=== PATIENT | male | born 1970 | race Two or more races ===

== ENCOUNTER 2024-05-18 10:45 | Inpatient (IN) | payer OTHER ==
[~2024-05-18] VITALS: Ht 167.6 cm; Wt 91.2 kg
[2024-05-18] MEDS ORDERED: RESTORIL30 M1 PO (13:12)
[2024-05-18] MEDS ORDERED: IRBESARTAN150 MG PO (13:12)
[2024-05-18] MEDS ORDERED: ROSUVASTATIN CA20 MG PO (13:12)
[2024-05-18] MEDS ORDERED: HYDROCHLOROTHIA25 MG PO (13:13)
[2024-05-18] MEDS ORDERED: HORIZANT300 MG PO (13:13)
[2024-05-18] MEDS ORDERED: CLONAZEPAM0.5 MG PO (13:13)
[2024-05-18] MEDS ORDERED: TAMS0.4C PO (13:13)
[2024-05-18] MEDS ORDERED: MONTELUKAST SOD10 MG PO (13:13)
[2024-05-18] MEDS ORDERED: PAROXETINE HCL30 MG PO (13:14)
[2024-05-18] MEDS ORDERED: BETAMETHASONE A (13:14)
[2024-05-18] MEDS ORDERED: PROAIR RESPICL90 MCG IH (13:15)
[2024-05-18] MEDS ORDERED: NORVASC10 MG PO (13:15)
[2024-05-18] MEDS ORDERED: BUPROPION HCL150 MG PO (13:16)
[2024-05-23] MEDS ORDERED: BUPIVACAINE HCL 30 ML VIAL IV ONE (11:30)
[2024-05-23] MEDS ORDERED: LIDOCAINE HCL 1%/EPINEPHRINE 20ML VIAL IJ ONE (11:30)
[2024-05-23] MEDS ORDERED: DEXTROSE 50 % IN WATER 0.5 G/ML DISP.SYRIN IV PRN (12:30)
[2024-05-23] MEDS ORDERED: RINGERS SOLUTION,LACTATED 1,000 ML IV SCH (12:30)
[2024-05-23] MEDS ORDERED: MORPHINE SULFATE 4 MG/ML CARTRIDGE IV PRN (12:30)
[2024-05-23] MEDS ORDERED: OxyCODONE HCL 5 MG TABLET (ROXICODONE) PO PRN (12:30)
[2024-05-23] MEDS ORDERED: ONDANSETRON HCL 2 MG/ML VIAL IV PRN (12:30)
[2024-05-23] MEDS ORDERED: ACETAMINOPHEN 500 MG GEL..CAP PO SCH (14:00)
[2024-05-23 15:08] LABS: HEMATOCRIT 42.2 % (39.0-48.0); HEMOGLOBIN 14.4 g/dL (13-16.00); MEAN CELL VOLUME 88.2 fL (80.0-100.00); MEAN CORPUSCULAR HGB CONC 34.1 g/dl (32.0-36.0); PLATELET COUNT 267 K/uL (150-450); RED BLOOD COUNT 4.79 M/uL (4.00-6.00); RED CELL DISTRIBUTION WIDTH 13.4 % (11.5-14.5)
[2024-05-23 15:25] LABS: ALBUMIN 4.2 gm/dL (3.4-5.0); CALCIUM 9.1 mg/dL (8.5-10.1); CREATININE SERUM 1.09 mg/dL (0.70-1.30); GFR 70.5; MAGNESIUM 1.9 mg/dL (1.8-2.4); PHOSPHOROUS 3.4 mg/dL (2.5-4.9); POTASSIUM 4.14 mEq/L (3.5-5.1)
[2024-05-23] MEDS ORDERED: POLYETHYLENE GLYCOL 3350 17 GM BLIST.PACK PO SCH (17:00)
[2024-05-23] MEDS ORDERED: GABAPENTIN 300 MG CAPSULE PO SCH (17:00)
[2024-05-23] MEDS ORDERED: HYOSCYAMINE SULFATE 0.125 MG TAB.SUBL SL SCH (17:00)
[2024-05-23] MEDS ORDERED: FAMOTIDINE/PF 20 MG/2 ML VIAL IV PUSH SCH (21:00)
[2024-05-24 07:00] LABS: HEMOGLOBIN 14.3 g/dL (13-16.00); MEAN CELL VOLUME 85.1 fL (80.0-100.00); MEAN CORPUSCULAR HEMOGLOBIN 29.7 pg (27.00-32.0); MEAN CORPUSCULAR HGB CONC 34.9 g/dl (32.0-36.0); PLATELET COUNT 262 K/uL (150-450); RED BLOOD COUNT 4.82 M/uL (4.00-6.00); RED CELL DISTRIBUTION WIDTH 13.4 % (11.5-14.5)
[2024-05-24 07:25] LABS: ALBUMIN 3.9 gm/dL (3.4-5.0); CREATININE SERUM 0.85 mg/dL (0.70-1.30); GFR 93.93; MAGNESIUM 1.9 mg/dL (1.8-2.4); PHOSPHOROUS 2.7 mg/dL (2.5-4.9); POTASSIUM 3.66 mEq/L (3.5-5.1)
[2024-05-24] MEDS ORDERED: ENOXAPARIN SODIUM 40 MG/0.4 ML SYRINGE SUBCUTANEO SCH (17:00)
[2024-05-24 22:00] LABS: URINE APPEARANCE Clear; URINE BILIRRUBIN Negative (NEGATIVE); URINE BLOOD Small; URINE COLOR Yellow; URINE GLUCOSE Negative (NEGATIVE); URINE KETONE Negative (NEGATIVE); URINE LEUKOCYTE Negative; URINE NITRATE Negative; URINE PROTEIN Negative (NEGATIVE); URINE UROBILINOGEN 0.2 E.U./dl
[2024-05-24 22:03] LABS: URINE BACTERIA 6.2 uL (0.0-1933); URINE RBC 55.8 uL (0.0-20.8)
[2024-05-24 22:05] LABS: URINE EPITHELIAL CELLS 1.3 uL (0.0-38.8)
[2024-05-25 06:58] LABS: HEMATOCRIT 39.5 % (39.0-48.0); HEMOGLOBIN 13.7 g/dL (13-16.00); MEAN CELL VOLUME 85.6 fL (80.0-100.00); MEAN CORPUSCULAR HEMOGLOBIN 29.7 pg (27.00-32.0); MEAN CORPUSCULAR HGB CONC 34.8 g/dl (32.0-36.0); PLATELET COUNT 214 K/uL (150-450); RED BLOOD COUNT 4.62 M/uL (4.00-6.00); RED CELL DISTRIBUTION WIDTH 13.5 % (11.5-14.5)
[2024-05-25] MEDS ORDERED: MONTELUKAST SODIUM 10 MG TABLET PO SCH (09:00)
[2024-05-25] MEDS ORDERED: ENOXAPARIN SODIUM 40 MG/0.4 ML SYRINGE SUBCUTANEO SCH (09:00)
[2024-05-25] MEDS ORDERED: BUPROPION HCL 150 MG TABLET.SA PO SCH (09:00)
[2024-05-25] MEDS ORDERED: PAROXETINE HCL 20 MG TABLET PO SCH (09:00)
[2024-05-25] MEDS ORDERED: HYDROCHLOROTHIAZIDE 25 MG TABLET PO SCH (09:00)
[2024-05-25] MEDS ORDERED: IRBESARTAN 150 MG TABLET PO SCH (09:00)
[2024-05-25] MEDS ORDERED: AMLODIPINE BESYLATE 10 MG TABLET PO SCH (09:00)
[2024-05-25] MEDS ORDERED: CLONAZEPAM 0.5 MG TABLET PO SCH ×2 (09:00→17:00)
[2024-05-25] MEDS ORDERED: TEMAZEPAM 15 MG CAPSULE PO SCH (21:00)
[2024-05-26] MEDS ORDERED: MAGNESIUM HYDROXIDE 30 ML BLIST.PACK PO NR (07:45)
[2024-05-26] MEDS ORDERED: TAMSULOSIN HCL 0.4 MG CAP PO SCH (15:27)
[2024-05-27] MEDS ORDERED: PEPCID AC20 MG PO (11:20)
[2024-05-27] MEDS ORDERED: TRAM1TAB98 PO (11:20)
[2024-05-27] MEDS ORDERED: INTESTINEX680 M1 PO (11:20)
== END 2024-05-27 14:52 | disposition home or self-care (01) | DRG 330 ==
LOC: O/R 05-23 06:00 → SURG 05-23 06:00 → SURH 05-23 07:00 → SURG 05-23 14:36 → SURH 05-25 16:07
PROVIDERS: Internal Medicine; Surgery; ADMIT Surgery; ATTEND Surgery
PROC: 0DBP4ZZ Excision of Rectum, Percutaneous Endoscopic Approach (ICD-10-PCS; 2024-05-23)
PROC: 07BC4ZZ Excision of Pelvis Lymphatic, Percutaneous Endoscopic Approach (ICD-10-PCS; 2024-05-23)
PROC: 0DJD8ZZ Inspection of Lower Intestinal Tract, Via Natural or Artificial Opening Endoscopic (ICD-10-PCS; 2024-05-23)
PROC: 0DTN4ZZ Resection of Sigmoid Colon, Percutaneous Endoscopic Approach (ICD-10-PCS; principal; 2024-05-23 07:00)
DX: C18.7 Malignant neoplasm of sigmoid colon (principal); K62.5 Hemorrhage of anus and rectum; R59.0 Localized enlarged lymph nodes

== ENCOUNTER 2024-06-23 06:34 | Day surgery (SDC) | payer OTHER ==
[~2024-06-23 06:34] MED LIST: BETAMETHASONE A; BUPROPION HCL150 MG PO; CLONAZEPAM0.5 MG PO; HORIZANT300 MG PO; HYDROCHLOROTHIA25 MG PO; INTESTINEX680 M1 PO; IRBESARTAN150 MG PO; MONTELUKAST SOD10 MG PO; NORVASC10 MG PO; PAROXETINE HCL30 MG PO; PEPCID AC20 MG PO; PROAIR RESPICL90 MCG IH; RESTORIL30 M1 PO; ROSUVASTATIN CA20 MG PO; TAMS0.4C PO; TRAM1TAB98 PO
[2024-06-23] MEDS ORDERED: CEFAZOLIN SODIUM 1,000 MG VIAL ONE (07:54)
[2024-06-23] MEDS ORDERED: BUPIVACAINE HCL/MPF 0.5% 30ML VIAL ONE (08:30)
[2024-06-23] MEDS ORDERED: HEPARIN SODIUM,PORCINE 500 UNITS/5 ML VIAL IV ONE (08:30)
[2024-06-23] MEDS ORDERED: TRAM1TAB98 PO (08:42)
[2024-06-23] MEDS ORDERED: VANCOMYCIN HCL 1,000 MG VIAL ONE (09:14)
[2024-06-23] MEDS ORDERED: ONDANSETRON HCL 2 MG/ML VIAL ONE (10:24)
[2024-06-23] MEDS ORDERED: ONDANSETRON HCL 2 MG/ML VIAL IV ONE (10:30)
== END 2024-06-23 13:20 | disposition home or self-care (01) ==
LOC: CIR.AMB 06:34
PROVIDERS: ATTEND Surgery
DX: C18.7 Malignant neoplasm of sigmoid colon (principal)
CPT/HCPCS: 36561; C1751

== ENCOUNTER 2025-08-10 07:35 | Day surgery (SDC) | payer OTHER ==
[2025-08-02 10:06] VITALS: BP 131/83
[~2025-08-10] VITALS: Ht 167.6 cm; Wt 88.9 kg
[~2025-08-10 07:35] MED LIST changes: +KLONOPIN
[2025-08-10] MEDS ORDERED: LIDOCAINE HCL 1%/EPINEPHRINE 20ML VIAL IJ ONE (10:00)
[2025-08-10] MEDS ORDERED: CEFAZOLIN SODIUM 1,000 MG VIAL IV ONE (10:00)
[2025-08-10] MEDS ORDERED: BUPIVACAINE HCL 30 ML VIAL IJ ONE (10:00)
[2025-08-10] MEDS ORDERED: TRAM1TAB98 PO (10:35)
== END 2025-08-10 13:15 | disposition home or self-care (01) ==
LOC: CIR.AMB 07:35
PROVIDERS: ATTEND Surgery
DX: T82.594A Other mechanical complication of infusion catheter, initial encounter (principal); C18.7 Malignant neoplasm of sigmoid colon; R59.0 Localized enlarged lymph nodes; K62.5 Hemorrhage of anus and rectum